=== PATIENT | male | born 1950 | race Caucasian/White ===

== ENCOUNTER → 2023-03-30 15:20 | Outpatient (CLI) | payer MEDICARE, OTHER, SELFPAY | PROVIDERS: PCP Nurse Practitioner; Referring Provider Orthopaedic Surgery Adult Reconstructive Orthopaedic Surgery; Visit Provider Orthopaedic Surgery Adult Reconstructive Orthopaedic Surgery | DX: Z01.818 Encounter for other preprocedural examination (principal) | CPT/HCPCS: 93005 ==

== ENCOUNTER → 2024-01-03 12:34 | Outpatient (CLI) | payer MEDICARE, OTHER, SELFPAY ==
[2024-01-03 14:53] LABS: Add Manual Diff / Slide Review NO; Basophils Absolute Auto 0 /uL (0-100); Basophils Percent Auto 0.6 % (0-2); Eosinophils Absolute Auto 300 /uL (0-450); Eosinophils Percent Auto 3.8 % (2-4); Hematocrit 47.7 % (41-53); Hemoglobin 16.2 g/dL (13.5-17.5); Lymphocytes Absolute Auto 2100 /uL (1100-4500); Lymphocytes Percent Auto 26.4 % (25-40); Mean Corpuscular HGB Conc 33.9 % (30-36); Mean Corpuscular Hemoglobin 29.6 PG (26-34); Mean Corpuscular Volume 87.3 fL (80-100); Monocytes Absolute Auto 900 /uL (0-900); Neutrophils Absolute Auto 4700 /uL (1500-7000); Neutrophils Percent Auto 58.2 % (50-75); Platelet Count 306 X10^3/uL (150-400); Red Blood Cell Count 5.47 X10^6/uL (4.5-5.9)
[2024-01-03 15:02] LABS: Hemoglobin A1C% w Est Avg Glu 5.6 % (4.0-6.0)
[2024-01-03 15:12] LABS: Albumin 4.3 g/dL (3.5-5.0); BUN Creatinine Ratio 27.7 (6-22); Blood Urea Nitrogen 23 mg/dL (9-20); Calcium 9.8 mg/dL (8.4-10.2); Carbon Dioxide 29 mmol/L (22-32); Chloride 101 mmol/L (98-107); Estimated Glomerular Filt Rate > 60 mL/min (>60); Glucose 72 mg/dL (80-110); HEMOLYSIS < 15 (0-50); Potassium 4.5 mmol/L (3.4-5.1); Sodium 139 mmol/L (137-145)
[2024-01-03 16:00] LABS: Vitamin D 25 Hydroxy (D3) 62.7 ng/mL (30.0-100.0)
== END ==
PROVIDERS: PCP Nurse Practitioner; Referring Provider Orthopaedic Surgery Adult Reconstructive Orthopaedic Surgery; Visit Provider Orthopaedic Surgery Adult Reconstructive Orthopaedic Surgery
DX: Z01.812 Encounter for preprocedural laboratory examination (principal); R73.9 Hyperglycemia, unspecified; E55.9 Vitamin D deficiency, unspecified; R77.0 Abnormality of albumin
CPT/HCPCS: 36415; 80048; 82040; 82306; 83036; 84134; 85025

== ENCOUNTER 2024-04-15 06:03 | Day surgery (SDC) | payer MEDICARE, OTHER, SELFPAY ==
[2024-04-08 08:23] VITALS: BMI 34.9
[2024-04-15] VITALS (13 sets, daily range): BP systolic 96–143; BP diastolic 58–86; PULSE 65–84; RESP 6–19; TEMP 36.1–36.6; O2SAT 90–98; BMI 34.9
--- NOTE | 2024-04-15 06:00 | DI.RAD.S_ITS ---
PROCEDURE: XR KNEE RT 1TO2V INDICATIONS: TKA TECHNIQUE: 2 views of the knee acquired. [facility], [place], XR KNEE ARTHRITIC SERIES BI, 01/30/2023, 14:10. FINDINGS: Bones: Patient is status post knee joint arthroplasty. Hardware components are in expected positions. Unchanged metal caio at the lateral tibial metaphysis. Visualized bony structures are intact. Soft tissues: Overlying postoperative changes are noted. IMPRESSION: Expected post-operative appearance of a knee arthroplasty. Approved by: Enrique Taylor M.D. on 04/15/2024 at 13:13
[2024-04-15] MEDS: LACTATED RINGERS 1,000 ML 42 ML IV ×2 (06:48→09:47)
[2024-04-15] MEDS: CELECOXIB 200 MG CAPSULE PO (06:48)
[2024-04-15] MEDS: ACETAMINOPHEN 325 MG TABLET 975 MG PO (06:49)
--- NOTE | 2024-04-15 07:42 | PM.PREOP ---
Pre-operative Note Interval Note History & Physical reviewed/Exam performed by Physician: Yes Changes to H&P: No
[2024-04-15] MEDS: CEFAZOLIN 2 GM/100 ML PREMIX 100 ML IV (08:54)
[2024-04-15] MEDS: TRANEXAMIC ACID 1,000 MG VIAL 1000 MG INJ ×2 (09:08→10:19)
--- NOTE | 2024-04-15 09:20 | SUR.OPER ---
Supine on padded OR bed. Pillow under head, arms secured on padded armboards <90 degree abduction. Safety belt across torso. Non-operative leg secured with tape over blanket over lower leg. Operative leg secured in DeMayo/Partha/Nathe positioner. Foam padded brace at thigh of operative leg.
[2024-04-15] MEDS: ROPIVACAINE/EPI/CLONIDINE/KET 50 ML SYRINGE INJ (09:29)
--- NOTE | 2024-04-15 10:43 | P.OP_ITS ---
Operative Date/Time/Diagnoses Date of procedure: 04/15/24 Pre-op diagnosis: Right knee osteoarthritis Post-op diagnosis: same Procedure & Clinicians Procedure: Right total knee arthroplasty Same procedure as scheduled: Yes Surgeon: Myron Lynn Media Strategist: Hilda Love Anesthesia Type: Spinal, Sedation, Peripheral nerve block and Local Operative Notes Estimated Blood Loss (mL): 150 Procedure in detail: Right Gap-Balanced Anne Persona Medial-Congruent Primary Total Knee Arthroplasty Implants: * Size 10 PPS Cruciate Retaining Femoral Component * Size G Tibial Component * Size 16 Medial Congruent Polyethylene Insert * Unresurfaced Patella Procedure Summary: This 73-year-old male patient had varus arthritis with significant wear both medially and laterally. I anticipated that the knee would balance appropriately in extension with mechanical axis cuts. Because of his significant wear I made a skim cut on the tibia intending to preserve as much tibial bone as possible. However after my initial mechanical axis cut he had significant laxity laterally relative to medially. I therefore recut the tibia in an additional 2? of varus. This improved the balanced but he remained relatively loose laterally so I removed osteophytes off the medial side of the tibia and performed a medial release. This resulted in gap symmetry but also opened up the extension gap and therefore necessitated a larger polyethylene insert. His bone quality was very good so uncemented fixation including a tibial component with a keel and peripheral pegs was utilized. The final polyethylene utilized was a size 16 as the posterior medial release resulted in opening of the medial gap to match the relative laxity of the lateral gap to accommodate a larger insert. Procedure in Detail: This patient was seen preoperatively and evaluated for knee pain which was refractory to numerous nonoperative treatment modalities. Their pain correlated with radiographic changes demonstrating significant degeneration in the knee joint. The risks and benefits of continued nonoperative management versus operative management were discussed at length and all of the patient?s questions were answered. Additional educational materials providing further details beyond our discussion in clinic were provided via a publicly available patient education video which included the incidence of medical complications associated with total knee arthroplasty, reasons for revision following total knee arthroplasty, and patient satisfaction rates following total knee arthroplasty. That video can be accessed at [email or web address] . With this understanding of the risks inherent to the procedure, the patient elected to move forward with operative management. Following preoperative optimization, the patient was scheduled for surgery. The patient was met in the preoperative holding area the day of the procedure and all questions were answered. The patient?s nares were swabbed with betadine in order to decolonize them from MRSA. Informed consent was signed and the right limb was marked with indelible ink.? The patient was brought back to the operating room where anesthesia was induced. The patient was transferred to the operating table and all bony prominences were padded. The operative site was prepped and draped in the usual sterile fashion. A second prep stick was utilized following drape placement. The incision was marked corresponding to the medial aspect of the tibial tubercle and the pat dong. Ioban was wrapped circumferentially around the knee. Prior to incision, tranexamic acid and cefazolin were administered. Templating images were displayed. A timeout procedure was performed verifying the patient?s identity, medical comorbidities, allergies, relevant medications, anesthesia type and the surgical plan. All present were in agreement. The assistance of a physician miller head assistant wet process was required for positioning, room setup, soft tissue retraction and wound closure. Without this assistance, the procedure would have been significantly more challenging and time consuming.?? The tourniquet was inflated prior to incision. I made an anterior incision over the knee, dissected through the subcutaneous tissues and identified the lateral border of the VMO. Medial and lateral soft tissue flaps were developed. A medial parapatellar arthrotomy was performed ensuring that adequate capsular tissue would remain for closure at the conclusion of the procedure. The hip was brought into extension and the medial soft tissues were released off the joint line of the tibia. Tissue overlying the distal anterior femur was released to allow for later assessment for anterior notching but left in place. A portion of the retropatellar fat pad was excised while protecting the patellar tendon. The patella was everted. The patella was not resurfaced. Osteophytes were excised and a lateral facetectomy was performed. The patella was released from its everted position.?? I flexed the knee to 90 degrees and placed retractors to allow access to the notch. An opening reamer was used to gain access to the femoral canal and an intramedullary emily was introduced into the canal. Diaphyseal fit was obtained in order to allow a distal femoral resection at 5 degrees relative to the anatomic axis, thereby aiming to achieve mechanical alignment of the eventual implant. A +1 resection was planned and assessed using an min wing. I then made the cut using a sagittal saw. This provided additional access to the femoral notch. The ACL and PCL were excised. Retractors were placed on the lateral and medial tibia. I hyperflexed the knee while externally rotating it to sublux the tibia anteriorly. I placed a PCL retractor posteriorly and used this to provide additional anterior subluxation. The remainder of the PCL root was released. An intramedullary reamer was used in the ACL footprint to provide access to the tibial canal. An extramedullary guide was positioned to allow a resection perpendicular to the anatomic and mechanical axes of the tibia, thereby aiming to achieve mechanical alignment of the eventual implant. A skin cut off the medial tibia was planned and the tibial cutting jig was pinned in place. I evaluated the cut depth, varus-valgus alignment and slope of the planned tibial resection and deemed them satisfactory. I cut the tibia with a sagittal saw while using retractors to protect the MCL, patellar tendon, and posterolateral structures.? The knee was repositioned in extension and the Fuzion soft tissue balancing gauge was introduced. This demonstrated that there was significant laxity laterally relative to medially. The tensioner would open to 9 laterally and only to 0 medially. I also noted that the knee did not come to full extension when inserting a size 10 spacer block which is the smallest size in the system. Needing a looser extension gap particularly medially I therefore recut the tibia in an additional 2? of varus. When I rechecked at this point in time I found that the medial side would open to 4 and the lateral side still opened to 9. I therefore performed a posterior medial release. This involved resecting osteophytes off the medial side of the tibia and releasing the capsule with bovine electrocautery. This evened out the extension gap symmetry with the medial side now opening to 9 as well as the lateral side. When 50 pounds of force was applied to the Fuzion device, the extension gap opened to 14 mm. I moved the knee into 90 degrees of flexion, and the Fuzion device was recalibrated by removing a 9 mm heather to allow assessment of the flexion gap. The Fuzion was placed perpendicular to the resected surface of the tibia and the resected surface of the distal femur. Fifty pounds of traction was applied to match the tension of the extension gap. This externally rotated the femur to 7 degrees. Pins were placed in the 14 mm holes. The measured resection guide was placed over the pins to allow sizing. Appropriate sizing was determined and a 4-in-1 block was placed. This was double checked using the Fuzion device to ensure that it would open to an equal distance as the extension gap when the same amount of force was applied. The Fuzion block was also used to assess flexion gap symmetry. An min wing was used to ensure there would be no anterior notching. Retractors were placed to protect the soft tissues during resection. Captured cuts were performed with a sagittal saw for the anterior and posterior femur as well as the corresponding chamfers.? Trial components were placed and the construct was assessed. Range of motion was assessed by ensuring the knee could achieve full extension and assessing maximum passive knee flexion by elevating the femur and allowing the heel to passively fall towards the buttock. Gap symmetry was assessed by stressing the medial and lateral compartments in both extension and flexion. Laxity was assessed in both extension and flexion and the polyethylene trial was adjusted with shims as necessary. Patellar tracking was assessed with knee flexion. Once satisfied with the construct, I moved forward with implant insertion. Lug holes were drilled in the femur and the tibia was prepped ensuring appropriate sizing and rotation relative to the tibial tubercle.?? The bony ends were irrigated and cement was prepared. Portions of the anterior chamfer cut were utilized as cement restrictors in the femur and tibia where intramedullar rods had been utilized. Cement was placed on the entirety of the undersurface of both the tibial and femoral components. Cement was placed onto the dry tibia and pressurized into the cancellous bone. I impacted the tibial component into place. Cement was removed. The tibia was reduced underneath the femur and placed cement onto the dry surface of the resected femur. I placed the femoral component as well as the intended polyethylene trial. Cement was removed from around the femur. I brought the knee into extension and manually pressurized the construct by pushing on the heel while the cement dried. The knee was bathed in a dilute mixture of betadine and peroxide. A mixture of Ropivacaine, Epinephrine, Clonidine and Toradol was infiltrated throughout the soft tissues into structures including the VMO, patellar tendon, quadriceps tendon, MCL and femoral periosteum. A low adductor canal block was also performed using this mixture unless one had been placed preoperatively by anesthesia. The knee was copiously irrigated with pulse lavage. Once cement had been allowed to dry the knee was again trialed. Range of motion was assessed by ensuring the knee could achieve full extension and assessing maximum passive knee flexion by elevating the femur and allowing the heel to passively fall towards the buttock. Gap symmetry was assessed by stressing the medial and lateral compartments in both extension and flexion. Laxity was assessed in both extension and flexion and the polyethylene trial was adjusted with shims as necessary. Patellar tracking was assessed with knee flexion. The tourniquet was let down and the polyethylene trial was removed. I inspected the knee inspected for excess cement and any residual bleeding. Once hemostasis was achieved I inserted the final polyethylene and ensured appropriate engagement of the dovetail locking mechanism.?? The arthrotomy was closed with absorbable interrupted suture ensuring that this extended to the top of the arthrotomy. This was backed up with running barbed suture throughout the arthrotomy. The skin was closed with 2-0 and 3-0 sutures. Surgical glue was applied and a soft dressing was placed.?The sponge, instrument and needle counts were reported as being correct at the end of the case.??No obvious complications occurred. The patient was transferred from the operating table back to a stretcher. The patient emerged from anesthesia without difficulty and was taken to the PACU in a stable condition.? Plan for aftercare: * Weightbearing as tolerated * Mobilization as soon as the patient has recovered from anesthesia. If physical therapists are unavailable at the time the patient is ready to ambulate, then nursing staff should help patient ambulate * Aspirin 81 twice per day for DVT prophylaxis * Multimodal pain regimen with no IV opioids ordered * Anticipate discharge home either later today or tomorrow * Follow up at [facility] in 2 weeks * Detailed postoperative instructions available at [email or web address]
--- NOTE | 2024-04-15 12:46 | PT.IIE ---
Current Diagnoses Unilateral primary osteoarthritis, right knee (04/15/24) Surgery Performed Operation Date: 04/15/24 07:45 Actual Procedures p Total Knee Arthroplasty(Right) - Myron Lynn MD Surgical History (Last Updated 04/08/24 @ 08:55 by Elina Montes, RN) Hx of foot surgery (2015) Hx of knee surgery (1980) Hx of tonsillectomy Medical History (Last Updated 04/08/24 @ 09:21 by Elina Montes RN) Adenomatous colon polyp Anesthesia complication BCC (basal cell carcinoma of skin) DJD (degenerative joint disease) Easy bruisability Elevated liver enzymes GERD (gastroesophageal reflux disease) Hearing loss History of COVID-19 (~2021) History of CVA (cerebrovascular accident) (04/2023) HLD (hyperlipidemia) Memory changes Palpitations Prediabetes Vitamin D deficiency Physical Therapy Inpatient Evaluation/Re-Eval M1 PT/OT-IP Prior Functional Status Start: 04/15/24 12:12 Freq: NEEDED Status: Active Protocol: Document 04/15/24 12:11 MB (Rec: 04/15/24 12:46 MB [id number]) Medical Review Prior Functional Status Medical History Reviewed Yes Diet/Fluid Consistency Regular Communication [place] Mobility and Gait I, no AD, lives with Activities of Daily Living and IADL's I Social History Household Members spouse Living Arrangements House Number of Floors (Floors) One Floor Number of Stairs To Enter/Railing? None Home Environment High Toilet,Walk in Shower Home Equipment Front Wheel Walker,Shower Seat without Backrest,Hand Held Shower,Grab Bars Near Toilet, Grab Bars In Shower Employment Status Retired M2 PT-IP Current Condition Start: 04/15/24 12:12 Freq: NEEDED Status: Active Protocol: Document 04/15/24 12:11 MB (Rec: 04/15/24 12:46 MB [id number]) Physical Therapy Current Condition Current Condition Evaluation Date 04/15/24 Treatment Diagnosis R TKR M3 PT-IP Subjective Start: 04/15/24 12:12 Freq: NEEDED Status: Active Protocol: Document 04/15/24 12:11 MB (Rec: 04/15/24 12:46 MB [id number]) Subjective Physical Therapy Visit Type Type Initial Evaluation Visit Start Time 12:11 Visit Stop Time 12:31 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 Pt reports some tingling in toes and numbness in buttocks once starting to scoot in the bed Therapy Pain Assessment Pain When Pain Assessed At Rest Pain Present Pain Present Pain Reported Location right knee Intensity 6 Scale Used Numeric (0 - 10) M4 PT-IP Mobility and Gait Start: 04/15/24 12:12 Freq: NEEDED Status: Active Protocol: Document 04/15/24 12:11 MB (Rec: 04/15/24 12:46 MB [id number]) PT-Bed Mobility Assessment Rolling Type of Rolling Roll to Left Level of Assist Contact Guard Assistance Supine to Sit Supine to Sit Contact Guard Assistance,1 Person Assistance Sit to Supine Sit to Supine Contact Guard Assistance,1 Person Assistance Scooting Scooting to Edge of Bed Contact Guard Assistance Scooting Up and Down in Bed Contact Guard Assistance PT-Transfer Assessment Sit to and From Stand Sit to and from Stand Moderate Assistance,1 Person Assistance,Use of Upper Extremities Equipment Transfer Assistive Device Gait Belt,Front Wheeled Walker Orthotic/Prosthetic Devices or Brace: No Comments Mobility Comments Pt reports light-headedness with moving and BP and HR in LUE: supine 121/72, 67; sitting 194/72 (may have some movement artifact); sitting 128/78, 71; sitting after trying to stand and c/o light- headedness 131/76, 70. Pt has trouble getting to standing, appears that right leg is unstable and flynn, returned to sitting PT-Balance Assessment Sitting Balance and Reactions Static Sitting Balance Ability Good Dynamic Sitting Balance Ability Fair Standing Balance and Reactions Static Standing Balance Ability Poor Dynamic Standing Balance Ability Poor Device Used RW M5 PT-IP Objective Assessments Start: 04/15/24 12:12 Freq: NEEDED Status: Active Protocol: Document 04/15/24 12:11 MB (Rec: 04/15/24 12:46 MB [id number]) Orientation Orientation/Cognition Level of Alertness Alert Orientation Name,Birthday,Place,Situation Language Function Ability Hard of Hearing Safety Awareness Decreased Safety Awareness Memory Description No Deficits Noted Gross Range of Motion Upper Extremity ROM Assessment Within Functional Limits Lower Extremity ROM Assessment Right Impaired Impairments Pt is able to perform quad engagement with bed mobility and right leg is too unstable with attempted standing x2 Strength Upper Extremity Strength Assessment Within Functional Limits Lower Extremity Strength Assessment Right Impaired Ankle Great toe extension right 3-/5 , left 3/5; B ankle DF 4/5 Coordination Assessment Gross Coordination Gross Coordination Impaired Sensation Assessment Sensation Gross Sensation Right LE Impaired Muscle Tone Muscle Tone WNL Yes M6 PT-IP Treatment Start: 04/15/24 12:12 Freq: NEEDED Status: Active Protocol: Document 04/15/24 12:11 MB (Rec: 04/15/24 12:46 MB [id number]) Physical Therapy Treatment Exercises Exercises Ankle Pumps,Gluteal Sets,Heel Slides Education Education Provided Weight Bearing Status,Post-Op Packet,Safety M7 PT-IP Assessment and Plan Start: 04/15/24 12:12 Freq: NEEDED Status: Active Protocol: Document 04/15/24 12:11 MB (Rec: 04/15/24 12:46 MB [id number]) PT Summary Assessment and Plan Potential Rehabilitation Potential Good Status of Condition at Evaluation Evolving Summary Impairments Pain,ROM,Strength,Balance, Coordination,Sensation,Bed Mobility,Transfers,Gait, Activity Tolerance Progress Towards Goals Slow Progress due to Medical Issues Assessment Summary Pt is a 73 y/o male presenting same day right TKA. Pt and and nsg asking about PT and PT checks in with pt. Pt reports some tingling in his toes but otherwise, normal sensation, with movement, he reports buttocks numbness and he presents with decreased sensation and proprioception RLE with attempted standing x2 . There may have been some motion artifact with second BP reading that is so high and pt does feel some dizziness/ light-headedness and pitches forward and to the left with standing with RW, mod A to prevent fall. O2 sats on RA are in the 90s. Deferred further mobility at this time. Con't mobility efforts. Goals Bed Mobility Goal Independent Transfer Goal Independent,Front Wheeled Walker Gait Goal Independent,Front Wheel Walker Gait Distance 100 Days to Meet Goals 2 Frequency of Treatment Frequency Of Treatment Twice a Day Other frequency x1-2 Treatment Plan Physical Therapy Treatment Plan Bed Mobility Training,Transfer Training,Gait Training, Therapeutic Exercise,Balance Retraining,Post Op Education, Discharge Planning,Hot or Cold Pack,Neuromuscular Re-ed, Coordination Retraining,Manual Therapy Weight Bearing Status Weight Bearing Status Weight Bear as Tolerated Recommendations To Nursing Amount of Assist Needed 2 Person Assist Discharge Recommendations PT Discharge Recommendations Home with Assistance, Outpatient PT Transportation Needs at Discharge Private Vehicle
[2024-04-15] MEDS: LACTATED RINGERS 1,000 ML 100 ML IV (13:30)
--- NOTE | 2024-04-15 14:13 | PT.IPTN ---
Current Diagnoses Unilateral primary osteoarthritis, right knee (04/15/24) Surgery Performed Operation Date: 04/15/24 07:45 Actual Procedures p Total Knee Arthroplasty(Right) - Myron Lynn MD Physical Therapy Treatment Note M2 PT-IP Current Condition Start: 04/15/24 12:12 Freq: NEEDED Status: Active Protocol: Document 04/15/24 12:11 MB (Rec: 04/15/24 12:46 MB [id number]) Physical Therapy Current Condition Current Condition Evaluation Date 04/15/24 Treatment Diagnosis R TKR M3 PT-IP Subjective Start: 04/15/24 12:12 Freq: NEEDED Status: Active Protocol: Document 04/15/24 13:46 MB (Rec: 04/15/24 14:13 MB [id number]) Subjective Physical Therapy Visit Type Type Treatment Note Visit Start Time 13:46 Visit Stop Time 13:04 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 Therapy Pain Assessment Pain When Pain Assessed At Rest Pain Present Pain Present Pain Reported Location right knee Intensity 2 Scale Used Numeric (0 - 10) M4 PT-IP Mobility and Gait Start: 04/15/24 12:12 Freq: NEEDED Status: Active Protocol: Document 04/15/24 13:46 MB (Rec: 04/15/24 14:13 MB [id number]) PT-Bed Mobility Assessment Rolling Type of Rolling Roll to Left Level of Assist Standby Assistance Supine to Sit Supine to Sit Standby Assistance,1 Person Assistance,Head of Bed Elevated,Bedrails Scooting Scooting to Edge of Bed Standby Assistance PT-Transfer Assessment Sit to and From Stand Sit to and from Stand Contact Guard Assistance, Moderate Assistance,1 Person Assistance,Use of Upper Extremities Equipment Transfer Assistive Device Gait Belt,Front Wheeled Walker Orthotic/Prosthetic Devices or Brace: No Comments Mobility Comments First attempt, pt leans way over toes and reports feeling dizzy and requires mod A for safety STS from bed to RW. BP cuff pops off and PT cannot get BP readying. Practiced STS x4 from the bed and x3 from the chair with forward and backwards stepping, hand placement and cues to have left leg touch the chair before sitting and pt is able to reach CGA to SBA level and nearby and verbalizes understanding. Gait Assessment Gait Gait Assistance Required: Contact Guard Assist,1 Person Assist Distance (Feet) 100 Able to Maintain Weight Bearing Status Yes During Gait Assistive Devices Assistive Device Gait Belt,Front Wheeled Walker Orthotic/Prosthetic Devices or Brace: No Gait Deviations General Gait Pattern Antalgic,Decreased Stride Length,Decreased Feet Clearance,Flexed Trunk,Step-to Gait,Wide Based Gait Factors Limiting Gait Function Factors Limiting Gait Function Decreased Strength, Incoordination,Limited Range of Motion,Pain,Poor Balance, Poor Safety Awareness Comments Gait Comments Cues to take reciprocal but not too long of steps once cleared with step-to forward and back several steps Stair Climbing Assessment Comments Stair Climbing Comments No steps to enter home PT-Balance Assessment Sitting Balance and Reactions Static Sitting Balance Ability Good Dynamic Sitting Balance Ability Good Standing Balance and Reactions Static Standing Balance Ability Good Dynamic Standing Balance Ability Good Device Used RW M5 PT-IP Objective Assessments Start: 04/15/24 12:12 Freq: NEEDED Status: Active Protocol: Document 04/15/24 12:11 MB (Rec: 04/15/24 12:46 MB [id number]) Orientation Orientation/Cognition Level of Alertness Alert Orientation Name,Birthday,Place,Situation Language Function Ability Hard of Hearing Safety Awareness Decreased Safety Awareness Memory Description No Deficits Noted Gross Range of Motion Upper Extremity ROM Assessment Within Functional Limits Lower Extremity ROM Assessment Right Impaired Impairments Pt is able to perform quad engagement with bed mobility and right leg is too unstable with attempted standing x2 Strength Upper Extremity Strength Assessment Within Functional Limits Lower Extremity Strength Assessment Right Impaired Ankle Great toe extension right 3-/5 , left 3/5; B ankle DF 4/5 Coordination Assessment Gross Coordination Gross Coordination Impaired Sensation Assessment Sensation Gross Sensation Right LE Impaired Muscle Tone Muscle Tone WNL Yes M6 PT-IP Treatment Start: 04/15/24 12:12 Freq: NEEDED Status: Active Protocol: Document 04/15/24 13:46 MB (Rec: 04/15/24 14:13 MB [id number]) Physical Therapy Treatment Exercises Exercises Ankle Pumps,Quad Sets,Heel Slides Education Education Provided Weight Bearing Status,Post-Op Packet,Safety Other Treatments Other Treatment Performed Pt limits knee flexion in long sitting to 30 deg, passive flexion to at least 70 deg sitting today, active QS M7 PT-IP Assessment and Plan Start: 04/15/24 12:12 Freq: NEEDED Status: Active Protocol: Document 04/15/24 13:46 MB (Rec: 04/15/24 14:13 MB [id number]) PT Summary Assessment and Plan Potential Rehabilitation Potential Good Status of Condition at Evaluation Evolving Summary Impairments Pain,ROM,Strength,Balance, Coordination,Bed Mobility, Transfers,Gait,Activity Tolerance Progress Towards Goals Progressing Toward Goals Assessment Summary Pt progresses towards transfer and gait goals and is nearby for treatment. Many repetitions of STS from bed and chair to work on safety with hand placement, positioning of body and legs. and pt report feeling good about going home. Goals Bed Mobility Goal Independent Transfer Goal Independent,Front Wheeled Walker Gait Goal Independent,Front Wheel Walker Gait Distance 150 Days to Meet Goals 2 Frequency of Treatment Frequency Of Treatment Twice a Day Other frequency x1 Treatment Plan Physical Therapy Treatment Plan Bed Mobility Training,Transfer Training,Gait Training, Therapeutic Exercise,Balance Retraining,Post Op Education, Discharge Planning,Hot or Cold Pack,Neuromuscular Re-ed, Coordination Retraining,Manual Therapy Weight Bearing Status Weight Bearing Status Weight Bear as Tolerated Recommendations To Nursing Amount of Assist Needed 1 Person Assist Discharge Recommendations PT Discharge Recommendations Home with Assistance, Outpatient PT Transportation Needs at Discharge Private Vehicle
[2024-04-15] MEDS: ACETAMINOPHEN 325 MG TABLET 650 MG PO (16:38)
[2024-04-15] MEDS: IBUPROFEN 600 MG TABLET PO (16:39)
--- NOTE | 2024-04-15 16:50 | PC.NURSE ---
Patient brought up from PACU to room 212 approx [phone]. Patient sitting up in bed, awake, denies pain, vss. Knee dressing with rajwinder wrap in place to right knee surgical site, CDI. Oriented to room and call light, call light placed within reach. at bedside.
--- NOTE | 2024-04-15 17:06 | PC.NURSE ---
Patient voided very large amount per patient, patient did not save to measure. Patient in chair, waiting for discharge paperwork to finalize, eager for discharge to home with his .
== END 2024-04-15 17:50 | disposition home or self-care (01) ==
LOC: OR 06:04 → AC 11:40
PROVIDERS: PCP Nurse Practitioner; Referring Provider Orthopaedic Surgery Adult Reconstructive Orthopaedic Surgery; Visit Provider Orthopaedic Surgery Adult Reconstructive Orthopaedic Surgery
PROC: 0SRC0JZ Replacement of Right Knee Joint with Synthetic Substitute, Open Approach (ICD-10-PCS; CPT 27447; principal; 2024-04-15 07:45)
DX: M17.11 Unilateral primary osteoarthritis, right knee (principal); M25.761 Osteophyte, right knee
CPT/HCPCS: 27447; 73560; 97116; 97161; C1776; C1713; J0690; J1100; J2405; J2704; J3010